=== PATIENT | male | born 1965 | race African-American/Black ===

== ENCOUNTER 2017-07-29 17:47 | Emergency (ER) | payer OTHER ==
[~2017-07-29 17:47] MED LIST: ISOVUE-370 76%-LOCM 1 ML ONE
[2017-07-29 18:56] LABS: #Eosinphils 0.1 thou/uL (0.0-0.7); #Monocytes 0.4 thou/uL (0.11-0.59); #Neutrophils 3.3 thou/uL (1.40-6.50); %Basophils 0.5 % (0.0-1.0); %Eosinophils 2.4 % (0.0-10.0); %Lymphocytes 34.5 % (21.0-51.0); %Monocytes 6.8 % (0.0-10.0); Hematocrit 40.2 % (42.0-52.0); Mean Platelet Volume 7.3 fL (7.4-10.4); Red Blood Cell (RBC) Count 4.56 mill/uL (4.70-6.10); White Blood Cell (WBC) Count 5.9 thou/uL (4.8-10.8)
[2017-07-29 19:12] LABS: ALT (SGPT) 42 U/L (8-55); AST (SGOT) 24 U/L (5-34); Alkaline Phosphatase 46 U/L (40-150); Anion Gap 12 mmol/L (10-20); BUN (Urea Nitrogen) 13 mg/dL (8.4-25.7); Bilirubin, Total 1.2 mg/dL (0.2-1.2); Calc. Creatinine Clearance 0 mL/min (70-130); Carbon Dioxide 27 mmol/L (22-29); Chloride 105 mmol/L (98-107); Estimated GFR-MDRD 79; Globulin 3.2 g/dL (2.4-3.5); Protein, Total 6.9 g/dL (6.0-8.3)
--- NOTE | 2017-07-29 19:19 | RAD ---
CHEST TWO VIEWS: History: Chest pain. Comparison: 09-14-16 FINDINGS: Cardiac silhouette and pulmonary vasculature are unremarkable. Mediastinum is midline. There is no co nfluent airspace consolidation, pneumothorax or pleural fluid evident. Degenerative changes involve t he thoracic spine on the lateral view. IMPRESSION: No active cardiopulmonary abnormalities are demonstrated. POS: [facility]
[2017-07-29] MEDS ORDERED: Diazepam 5 MG TAB ONE (21:18)
[2017-07-29] MEDS ORDERED: Ketorolac Tromethamine 30 MG/ML VIAL ONE (21:18)
--- NOTE | 2017-07-29 21:29 | CT ---
CT CHEST WITH IV CONTRAST: History: Right chest pain. FINDINGS: There is no evidence of consolidation, pleural fluid, pneumothorax or mediastinal adenopathy. No disp laced rib fractures are apparent. IMPRESSION: No significant abnormalities are demonstrated. POS: [facility]
== END 2017-07-29 21:30 | disposition home or self-care (01) ==
LOC: ERS 17:47
DX: S29.012A Strain of muscle and tendon of back wall of thorax, initial encounter (principal); X50.1XXA Overexertion from prolonged static or awkward postures, initial encounter
CPT/HCPCS: 36415; 71020; 71260; 80053; 85025; 85379; 96374; J1885

== ENCOUNTER 2019-08-04 20:40 | Emergency (ER) | payer OTHER ==
--- NOTE | 2019-08-04 21:10 | RAD ---
LEFT KNEE FOUR VIEWS: HISTORY: Knee pain. FINDINGS: There are degenerative changes. Spurring from the femoral condyles and patella. Mild spurring from th e tibial condyles. No fracture. There is suggestion of small joint effusion. IMPRESSION: Mild to moderate degenerative changes. Evidence of small joint effusion. POS: [facility]
[2019-08-04] MEDS ORDERED: HYDROcodone/Acetaminophen 10/325 mg Tablet ONE (21:20)
[2019-08-04] MEDS ORDERED: Bupivacaine 0.5% 10 ML VIAL ONE (21:40)
== END 2019-08-04 22:17 | disposition home or self-care (01) ==
LOC: ERS 20:40
DX: M17.12 Unilateral primary osteoarthritis, left knee (principal); M25.462 Effusion, left knee; I10 Essential (primary) hypertension; E78.5 Hyperlipidemia, unspecified; Z79.82 Long term (current) use of aspirin; Z79.899 Other long term (current) drug therapy
CPT/HCPCS: 20611; J3490

== ENCOUNTER 2022-09-08 07:10 | Outpatient (CLI) | payer BC, OTHER | END 2022-09-08 07:11 | disposition home or self-care (01) | LOC: ULT 07:10 | PROVIDERS: ATTEND General Practice | DX: E80.6 Other disorders of bilirubin metabolism (principal); E88.89 Other specified metabolic disorders | CPT/HCPCS: 76705 ==